=== PATIENT | male | born 1945 | race Caucasian/White ===

== ENCOUNTER → 2021-12-13 14:07 | Outpatient (CLI) | payer BC, SELFPAY ==
--- NOTE | ~2021-12-13 | XR_ITS ---
XR chest 2V DATE: 12/13/2021 15:09 INDICATION: Difficulty breathing TECHNIQUE: 2 views COMPARISON: 02/10/2019 PA and lateral chest FINDINGS: Chronic high position of diaphragm, greater on the left. There is prominent gaseous distent ion of the splenic flexure of the colon. Bibasilar atelectasis or infiltrate is again noted. The mid and upper lung miner appear essentially clear. No pleural effusion or pneumothorax is evident. Heart size is not optimally evaluated but is likely enlarged. Diffuse osteopenia. Degenerative spurring of the thoracic spine. IMPRESSION: Bibasilar infiltrate and/atelectasis Relatively high diaphragm Little interval change since 02/10/2019 Reviewed, dictated and finalized at location A.
== END ==
PROVIDERS: PCP Physician Assistant; Visit Provider Physician Assistant
DX: R06.00 Dyspnea, unspecified (principal); R91.8 Other nonspecific abnormal finding of lung field
CPT/HCPCS: 71046